=== PATIENT | female | born 1960 | race Caucasian/White ===

== ENCOUNTER 2018-09-05 12:35 | Emergency (ER) | payer OTHER ==
[2018-09-05] MEDS ORDERED: SODIUM CHLORIDE 0.9% 1,000 ML IV STA (13:52)
[2018-09-05] MEDS ORDERED: LIDOCAINE 5% PATCH TOPICAL STA (13:52)
--- NOTE | 2018-09-05 13:54 | ED ---
General Adult HPI - General Chief complaint: Back Pain/Injury Stated complaint: Back pain Time Seen by Provider: 09/05/18 13:38 Source: patient, police Mode of arrival: EMS - History of Present Illness Initial comments: Dictation was produced using [employer] dictation software. please excuse any grammatical, word or spelling errors. Chief Complaint: 58-year-old female past medical history of COPD she is oxygen dependent presents with left-sided flank pain. History of Present Illness: Patient is a 58-year-old female she presents with left-sided flank pain. She states that yesterday she was bending over walking her dogs when she felt a strain in her left back. Patient states the pain is mild when at rest however severely exacerbated with certain movements. Patient states she's been camping has a little bit of water recently. States that was been hot and she's been sweating more than usual. Patient has a history of kidney stones. No nausea vomiting or diarrhea. The ROS documented in this emergency department record has been reviewed and confirmed by me. Those systems with pertinent positive or negative responses have been documented in the HPI. All other systems are other negative and/or noncontributory. PHYSICAL EXAM: General Impression: Alert and oriented x3, not in acute distress HEENT: Normocephalic atraumatic, extra-ocular movements intact, pupils equal and reactive to light bilaterally, mucous membranes moist. Cardiovascular: Heart regular rate and rhythm, S1&S2 audible, no murmurs, rubs or gallops Chest: Lungs clear to auscultation bilaterally, no rhonchi, no wheeze, no rales Abdomen: Bowel sounds present, abdomen soft, non-tender, non-distended, no organomegaly Musculoskeletal: Pulses present and equal in all extremities, no peripheral edema, tenderness to palpation that is reproducible to the left lower back Motor: no focal deficits noted Neurological: CN II-XII grossly intact, no focal motor or sensory deficits noted Skin: Intact with no visualized rashes Psych: Normal affect and mood ED course: 58-year-old female presents with musculoskeletal back pain. No red flag symptoms. Patient is reproducible at bedside. Vital signs are unremarkable. Patient appears to be in no acute distress. Urinalysis unremarkable. Patient feeling better. She had is a Lidoderm patch placed at the site of pain. Patient told to maintain good hydration. Advised follow-up with PCP upon discharge. - Related Data Home Medications Medication Instructions Recorded Confirmed Cholecalciferol (Vitamin D3) 10,000 unit PO DAILY 09/05/18 09/05/18 [Vitamin D3] Citalopram Hydrobromide 40 mg PO DAILY 09/05/18 09/05/18 [Citalopram HBr] Fluticasone/Umeclidin/Vilanter 1 puff INHALATION RT-DAILY 09/05/18 09/05/18 [Trelegy Ellipta 100-62.5-25] Levalbuterol Nebulized [Xopenex 1.25 mg INHALATION RT-TID PRN 09/05/18 09/05/18 Nebulized] Lisinopril [Prinivil] 10 mg PO DAILY 09/05/18 09/05/18 buPROPion HCL [Wellbutrin XL] 300 mg PO DAILY 09/05/18 09/05/18 rOPINIRole HCL 0.5 mg PO HS 09/05/18 09/05/18 Allergies Allergy/AdvReac Type Severity Reaction Status Date / Time albuterol Allergy Unknown Verified 09/05/18 12:53 Penicillins Allergy Unknown Verified 09/05/18 12:53 Review of Systems ROS Statement: Those systems with pertinent positive or pertinent negative responses have been documented in the HPI. ROS Other: All systems not noted in ROS Statement are negative. Past Medical History Past Medical History: COPD Additional Past Medical History / Comment(s): Emphysema, cellulitis History of Any Multi-Drug Resistant Organisms: None Reported Past Surgical History: No Surgical Hx Reported Past Psychological History: Anxiety, Depression Smoking Status: Former smoker Past Alcohol Use History: None Reported Past Drug Use History: None Reported Course Vital Signs 09/05/18 13:05 Temperature 97.8 F Pulse Rate 88 Respiratory 12 Rate Blood Pressure 120/72 O2 Sat by Pulse 97 Oximetry Medical Decision Making - Lab Data Lab Results 09/05/18 Range/Units 14:13 Urine Color Yellow Urine Appearance Clear (Clear) Urine pH 7.0 (5.0-8.0) Ur Specific [place] 1.015 (1.001-1.035) Urine Protein Negative (Negative) Urine Glucose (UA) Negative (Negative) Urine Ketones 1+ H (Negative) Urine Blood Negative (Negative) Urine Nitrite Negative (Negative) Urine Bilirubin Negative (Negative) Urine Urobilinogen <2.0 (<2.0) mg/dL Ur Leukocyte Esterase Small H (Negative) Urine RBC <1 (0-5) /hpf Urine WBC 5 (0-5) /hpf Ur Squamous Epith Cells 5 H (0-4) /hpf Urine Bacteria Rare H (None) /hpf Urine Mucus Few H (None) /hpf Disposition Clinical Impression: Mechanical back pain Disposition: HOME SELF-CARE Condition: Good Instructions (If sedation given, give patient instructions): Acute Low Back Pain (ED) Is patient prescribed a controlled substance at d/c from ED?: No Referrals: Nonstaff,Physician [Primary Care Provider] - 1-2 days Time of Disposition: 14:57
[2018-09-05 14:44] LABS: Appearance,Urine Clear (Clear); Bacteria,Urine Rare /hpf; Bilirubin,Urine Negative (Negative); Blood,Urine Negative (Negative); Color,Urine Yellow; Glucose,Urine (UA) Negative (Negative); Ketones,Urine 1+ (Negative); Leukocyte Esterase,Urine Small (Negative); Mucus,Urine Few /hpf; Nitrite,Urine Negative (Negative); Protein,Urine Negative (Negative); RBC,Urine <1 /hpf (0-5); Specific Gravity,Urine 1.015 (1.001-1.035); Squamous Epithelial Cell,Urine 5 /hpf (0-4); Urobilinogen,Urine <2.0 mg/dL (<2.0); WBC,Urine 5 /hpf (0-5)
[2018-09-05 15:33] VITALS: BP 122/64; PULSE 81; RESP 18; TEMP 98.4
== END 2018-09-05 16:06 | disposition home or self-care (01) ==
LOC: EC 12:35
DX: M54.9 Dorsalgia, unspecified (principal); R10.9 Unspecified abdominal pain; J44.9 Chronic obstructive pulmonary disease, unspecified; F41.9 Anxiety disorder, unspecified; F32.9 Major depressive disorder, single episode, unspecified; Z87.891 Personal history of nicotine dependence; Z79.51 Long term (current) use of inhaled steroids; Z79.899 Other long term (current) drug therapy; Z88.8 Allergy status to other drugs, medicaments and biological substances; Z88.0 Allergy status to penicillin
CPT/HCPCS: 81001; 87086; 96360; 99284